=== PATIENT | female | born 2000 | race Hispanic/Latino ===

== ENCOUNTER 2022-07-05 00:20 | Emergency (ER) | payer BC ==
[~2022-07-05] VITALS: Ht 154.9 cm; Wt 51.7 kg
[2022-07-05 00:54] LABS: HEMATOCRIT 35.3 % (36-48); MEAN CORPUSCULAR HEMOGLOBIN 28.7 pg (27.0-33.0); MEAN CORPUSCULAR HGB CONC 33.7 g/dL (32.0-36.0); MEAN CORPUSCULAR VOLUME 85.1 fL (80-100); MONOCYTES % (AUTO) 7.9 % (3.0-13.0); NEUTROPHILS % (AUTO) 43.7 % (40.0-77.0); PLATELET COUNT (AUTO) 250 K/uL (130-400); RED BLOOD CELL COUNT(AUTO) 4.15 MIL/uL (4.00-5.50); WHITE BLOOD COUNT (AUTO) 8.2 K/uL (4.8-10.8)
[2022-07-05] MEDS ORDERED: MORPHINE 2 MG SYG ONE (00:58)
[2022-07-05] MEDS ORDERED: 0.9%NACL 1000ML 1,000 ML IV ONE (01:00)
[2022-07-05] MEDS ORDERED: MORPHINE 4 MG SYG IVP ONE (01:00)
[2022-07-05] MEDS ORDERED: ONDANSETRON 4MG INJ IVP ONE (01:00)
[2022-07-05] MEDS ORDERED: ZOSYN 3.375GM +NS 50ML IVPB ONE (01:00)
[2022-07-05 01:18] LABS: CREATININE 0.9 mg/dL (0.5-1.5); POTASSIUM 3.2 mmol/L (3.5-5.1)
[2022-07-05 01:22] LABS: ALBUMIN 4.1 g/dL (3.5-5.0); TOTAL PROTEIN, SERUM 7.7 g/dL (6.0-8.3)
[2022-07-05] MEDS ORDERED: HYDROMORPHONE 0.5 MG SYG (0.5MG/0.5ML) ONE (01:39)
[2022-07-05] MEDS ORDERED: IOHEXOL 350 MG/ML 100ML INFUS..BTL IV ONE (01:45)
[2022-07-05 03:30] LABS: APPEARANCE,URINE CLEAR (CLEAR); BILIRUBIN,URINE NEGATIVE (NEGATIVE); COLOR,URINE COLORLESS (YELLOW); GLUCOSE, URINE (UA) NEGATIVE (NEGATIVE); KETONES,URINE 20 mg/dL (NEGATIVE); LEUKOCYTE ESTERASE ,URINE 75 Leu/uL (NEGATIVE); NITRATE,URINE 1+ (NEGATIVE); OCCULT BLOOD,URINE LARGE (NEGATIVE); PH,URINE 6.5 (5.0-8.0); PROTEIN,URINE NEGATIVE (NEGATIVE); UROBILINOGEN,URINE 0.2 mg/dL (0.2-1.0)
[2022-07-05 03:32] LABS: BACTERIA,URINE RARE /HPF (None Seen); MUCUS,URINE RARE LPF (None Seen); RBC,URINE 51-100 /HPF (0-1); SQUAMOUS EPITHELIAL CELL,UR RARE /HPF (0-2); WBC,URINE 26-50 /HPF (0-1)
[2022-07-05 04:21] VITALS: BP 122/64
[2022-07-05] MEDS ORDERED: DICL35CA3 PO (04:32)
[2022-07-05] MEDS ORDERED: CEPH500B PO (04:33)
== END 2022-07-05 05:05 | disposition home or self-care (01) ==
LOC: EDH 00:20
DX: N39.0 Urinary tract infection, site not specified (principal); N94.0 Mittelschmerz; Z20.822 Contact with and (suspected) exposure to COVID-19
CPT/HCPCS: 99284; 74177; 96365; 96375; 87635; 80053; 84703; 83690; 85025; 87077; 87088; 87186; 81001; 36415; C9803; J7030; J2405; J2270; J2543; J1170; Q9967; 96376